=== PATIENT | male | born 1955 | race Caucasian/White ===

== ENCOUNTER 2019-02-03 13:43 | Inpatient (IN) ==
[2019-02-03 15:09] LABS: BE -1.9 mmoll (-3.0-3.0); BLOOD TYPE ARTERIAL; HCO3-(ACT) 23.4 mmoll (20.0-26.0); O2HB 94.1 % (95.0-99.0); PCO2(98.6) 20 mmHg (35-45); PO2(98.6) 71 mmHg (60-100); SAMPLE BLOOD; THB 12.1 g/dL (11.5-17.4); pH(98.6) 7.57 (7.35-7.45)
[2019-02-03 15:10] LABS: BASO% 1.4 % (0.0-0.8); EOS# 0.04 X1000 (0.0-0.7); EOS% 0.6 % (0.0-10.0); HEMOGLOBIN 11.9 g/dL (14.0-18.0); IMM GRAN# 0.02 X1000 (0.0-0.04); IMM GRAN% 0.3 % (0.0-0.5); LYMPH# 1.36 X1000 (1.2-3.4); LYMPH% 19.7 % (20.5-51.1); MCH 24.6 PG (27-31); MCHC 32.2 g/dL (33-37); MCV 76.6 FL (81-99); MONO# 1.19 X1000 (0.11-0.59); MONO% 17.2 % (1.7-9.3); MPV 9.8 FL (7.4-10.4); NEUT# 4.21 X1000 (1.4-6.5); NEUT% 60.8 % (42.2-75.2); PLT 171 X1000 (130-400); RBC 4.83 XMIL (4.7-6.1); RDW 18.7 % (11.5-14.5); WBC 6.92 X1000 (4.8-10.8)
[2019-02-03 15:11] LABS: BILIRUBIN URINE NEGATIVE (NEGATIVE); BLOOD URINE 4+ (NEGATIVE); CLARITY VERY CLOUDY (CLEAR); COLOR AMBER; KETONE URINE 2+(Moderate) mg/dL (NEGATIVE); LEUKOCYTES URINE 1+ (NEGATIVE); NITRITE URINE POSITIVE (NEGATIVE); PH URINE 6.5; PROTEIN URINE 2+(100 mg/dL) mg/dL (NEGATIVE); SP GRAVITY URINE 1.015; UROBILINOGEN URINE 4 mg/dL
[2019-02-03 15:11] LABS: ALLEN TEST NO; MODALITY ROOM AIR
--- NOTE | 2019-02-03 15:17 | EKG Report ---
Test Performed on : 02/03/2019 2:01:19 PM Test Reason : ams Blood Pressure : / mmHG Vent. Rate : 098 BPM Atrial Rate : 097 BPM P-R Int : 116 ms QRS Dur : 066 ms QT Int : 398 ms P-R-T Axes : 084 083 058 degrees QTc Int : 508 ms Undetermined rhythm Nonspecific ST and T wave abnormality Abnormal ECG When compared with ECG of 02-NOV-2017 01:57, Current undetermined rhythm precludes rhythm comparison, needs review Unconfirmed Result
[2019-02-03 15:19] LABS: INR 1.31
[2019-02-03 15:20] LABS: PTT 34.2 Seconds (22.3-41.8)
[2019-02-03 15:22] LABS: ESTIMATED GFR > 60
[2019-02-03 15:26] LABS: URINE BACTERIA 1+ /HFP; URINE CAST NONE SEEN /LPF; URINE EPITHELIAL CELLS <10 /HPF (<10); URINE RBC TNTC /HPF (<10); URINE YEAST NONE SEEN /HPF
[2019-02-03 15:27] LABS: URINE CRYSTAL NONE SEEN /HPF; URINE SOURCE CATH
[2019-02-03] MEDS ORDERED: MAGNESIUM SULFATE 2 GM/S.W.I. 2 GM/50 ML IVPB IV ONE (15:32)
[2019-02-03] MEDS ORDERED: MERREM 1 GM in NS 50 ML IV ONE (15:33)
[2019-02-03 15:34] LABS: AGAP 16; ALBUMIN 4.1 g/dL (3.5-5.0); ALKALINE PHOSPHATASE 288 U/L (32-122); BUN 11 mg/dL (8-22); CALCIUM 9.1 mg/dL (8.8-10.2); CHLORIDE 101 mmol/L (98-107); CK PROFILE 233 U/L (24-204); COSMO 278; CREATININE 0.4 mg/dL (0.7-1.2); GLUCOSE 187 mg/dL (70-104); GOT 27 U/L (10-34); GPT 14 U/L (10-44); MAGNESIUM 0.9 mg/dL (1.5-2.7); POTASSIUM 3.5 mmol/L (3.5-5.1); SODIUM 137 mmol/L (136-145); TCO2 20 mmol/L (25-35); TOTAL PROTEIN 6.7 g/dL (6.3-8.3)
--- NOTE | 2019-02-03 15:39 | Diag Imaging Result Doc PS360 ---
EXAM: CT HEAD W/O CONTRAST HISTORY: ams, fall TECHNIQUE: CT head without contrast COMPARISON: 10/30/2017 FINDINGS: No parenchymal hemorrhage. No epidural or subdural hematoma. No subarachnoid hemorrhage. Mild atrophy with mild chronic microvascular ischemic changes No mass identified on this noncontrasted exam. No hydrocephalus. No skull fracture. IMPRESSION: No hemorrhage. No injury. This exam was performed using automated exposure control, adjustment of mA or kV according to patient size, and/or use of iterative reconstruction technique. Electronically signed by Ramon Chavez 02/03/2019 3:37 PM
--- NOTE | 2019-02-03 15:57 | Diag Imaging Result Doc PS360 ---
EXAM: CHEST-1 VIEW HISTORY: AMS TECHNIQUE: Single view COMPARISON: 05/13/2017 FINDINGS: The lungs are well expanded. The heart is not enlarged. The vessels are not distended. There are no infiltrates. No effusion identified. IMPRESSION: Negative exam. Electronically signed by Ramon Chavez 02/03/2019 3:55 PM
[2019-02-03 16:02] LABS: CK INDEX 0.9 (0.0-2.5); CK-MB 2.04 ng/mL (0.0-5.0)
[2019-02-03] MEDS ORDERED: NS 1,000 ML IV ONE ×2 (16:07)
[2019-02-03] MEDS ORDERED: DILAUDID IV ONE (16:33)
--- NOTE | 2019-02-03 16:40 | PROVIDER DOCUMENTATION ---
This chart was entered by Priscila Cook Scribe, acting as scribe for Alonzo Saunders MD. HPI-General Adult - General Chief Complaint: SEPSIS ALERT - P Stated Complaint: CONFUSED X 2 DAYS Time Seen by Provider: 02/03/19 14:07 Source: patient, family Unable to obtain history due to:: altered (confused since yesterday) Allergies/Adverse Reactions: Patient Allergies Allergy/AdvReac Type Severity Reaction Status Date / Time No Known Allergies Allergy Verified 10/30/17 12:48 Home Medications: Home Medication List Medication Instructions Recorded Confirmed Last Taken Type Metformin HCl [Glucophage Xr] 720 mg PO BID 10/30/17 02/03/19 10/29/17 History Tamsulosin [Flomax] 0.4 mg PO DAILY 10/30/17 02/03/19 10/29/17 History Tizanidine HCl [Zanaflex] 4 mg PO QHS 10/30/17 02/03/19 10/29/17 History Lactulose 30 ml PO BID udc 11/18/17 02/03/19 Unknown Rx Calcium Carbonate [Calcium] 1,200 mg PO BID 02/03/19 02/03/19 Unknown History Oxycodone HCl 10 mg PO PRN PRN 02/03/19 02/03/19 Unknown History - History of Present Illness -Gen Adult Nature of Presenting Problems: 63 yowm presents to the ed with his . sts took him to see his pcp this am at dr chacon office for worsening confusion fever, chills and diarrhea. pt sts he fell 3 weeks prior but was not seen in dr office for fall. pt has hx of cirrhosis and sts when his ammonia gets elevated he has acted this way in the past. pt on exam is frail in appearance and ill appearing. pt is confused and c/o back pain Location of Pain/Injury: reports: back ( sts chronic) Quality of Pain: reports: aching Severity: reports: moderate Onset/Duration: reports: last night Timing: reports: still present (confusion), constant Context/Activities at Onset: reports: light activity Modifying Factors: improves with: nothing Associated Symptoms: reports: back/neck pain (chronic), diarrhea, fever/chills, malaise, sensory/motor loss (generalized weakness). denies: chest pain, nausea, shortness of breath, vomiting Similar Symptoms Previously?: Yes Recently seen or treated by another doctor?: Yes (saw dr shah this am and sent to ed) Review of Systems - Adult - REVIEW OF SYSTEMS - ADULT ROS:: ROS per family () Constitutional: reports: see HPI, chills, fever Eyes: reports: no symptoms reported Ears, Nose, Mouth & Throat: reports: no symptoms reported Cardiovascular: denies: chest pain, palpitations Respiratory: reports: no symptoms reported. denies: cough, shortness of breath, wheezing Gastrointestinal: reports: see HPI, diarrhea. denies: nausea, vomiting Genitourinary: reports: no symptoms reported Musculoskeletal: reports: see HPI, back pain (chronic). denies: neck pain Integumentary: reports: no symptoms reported Neurological: reports: see HPI, other (confused). denies: slurred speech Psychiatric: reports: no symptoms reported Endocrine: reports: no symptoms reported Hematologic/Lymphatic: reports: see HPI, easy bruising Allergic/Immunologic: reports: no symptoms reported All Other Systems: Reviewed and Negative Past History - Adult - PAST MEDICAL HISTORY-ADULT Review of Records: reports: Old Records Reviewed, Nursing Assessment Review, Medications Reviewed, Social history reviewed & non-contributory. Major Childhood Illnesses: reports: denies history Cardiovascular: reports: denies history Respiratory: reports: COPD Gastrointestinal: reports: GERD, liver disease Obstetrical/Gynecological: reports: denies history Genitourinary: reports: cancer Musculoskeletal: reports: chronic pain Hand Dominance: Right Handed Neurological: reports: denies history Psychiatric: reports: denies history Endocrine/Immune: reports: denies history, Diabetes Diabetes Type: Type 2 Other Conditions: reports: denies history - PRIOR SURGERIES/PROCEDURES Surgical/Procedure History: reports: reviewed, not pertinent - IMMUNIZATION STATUS Childhood Immunizations: See Nurse Assessment Flu Vaccine: See Nurse Assessment - FAMILY HISTORY Family History: reviewed, not pertinent - SOCIAL HISTORY Smoking: cigarettes, chew, less than 1 pack/day Provider spent 3-5 mins advising pt. on dangers of tobacco.: Discussed manners to quit use, and f/u contacts for add'l counseling. Substance Use: denies Living Situation: family Physical Exam-General - PHYSICAL EXAM-ADULT Initial Vital Signs Reviewed: Yes - CONSTITUTIONAL General Appearance: alert, mild distress, thin. negative: appears well - EYES Eyes: PERRL/EOMI, pale conjunctivae - HEAD, EARS, NOSE, MOUTH & THROAT HENMT: negative: moist mucous membranes (dry oral) - NECK Neck: full range of motion, normal inspection - RESPIRATORY Respiratory: chest non-tender, lungs clear, normal breath sounds, increased rate (24) - CARDIOVASCULAR Cardiovascular: normal peripheral pulses, tachycardia (108) - CHEST (BREASTS) Chest/Breast: deferred - GASTROINTESTINAL (ABDOMEN) Abdominal Exam: normal bowel sounds, other (scaphoid abdomen) - GENITOURINARY Male Genitalia: deferred Rectal Exam: deferred Hemoccult Exam: deferred - LYMPHATIC Lymphatic: no adenopathy - MUSCULOSKELETAL Back Exam: no CVA tenderness, no vertebral tenderness, other (has chronic back pain on exam c/o lumbar pain) Extremity: normal range of motion, normal inspection - SKIN Integumentary: warm/dry, pallor. negative: normal turgor (poor turgor) - NEUROLOGIC Neurologic: motor weakness (generalized) - PSYCHIATRIC Psych/Mental Status: disheveled (mild confusion) Progress - PLAN OF CARE/RESULTS Progress/Plan/Lab Results: Vital Signs - 8 hr 02/03/19 13:53 Temperature 97.7 F Pulse Rate 108 H Respiratory Rate 24 Blood Pressure 167/93 O2 Sat by Pulse Oximetry 92 L Orders Category Date Time Status Cardiac Monitoring DIRECTED Care 02/03/19 14:28 Active IV Insertion ORDERED Care 02/03/19 14:28 Active Notify Physician As Ordered Care 02/03/19 14:28 Active Nursing- Obtain EKG once Care 02/03/19 14:31 Active CHEST-1 VIEW [RAD] Stat Exams 02/03/19 14:[address] HEAD W/O CONTRAST [CT] Stat Exams 02/03/19 14:31 Ordered ABG [RESP] Routine Lab 02/03/19 14:28 Ordered AMMONIA [CHEM] Stat Lab 02/03/19 14:35 Ordered BLOOD CULTURE [BLDCUL] Stat Lab 02/03/19 14:35 Ordered CBC WITH DIFF [HEME] Stat Lab 02/03/19 14:35 Ordered CK PROFILE [SP CHEM] Stat Lab 02/03/19 14:35 Ordered COMPREHENSIVE METABOLIC PANEL [CHEM] Stat Lab 02/03/19 14:35 Ordered LACTATE, PLASMA [CHEM] Q3H Lab 02/03/19 14:35 Ordered LACTATE, PLASMA [CHEM] Q3H Lab 02/03/19 17:30 Uncollected LACTATE, PLASMA [CHEM] Q3H Lab 02/03/19 20:30 Uncollected MAGNESIUM [CHEM] Stat Lab 02/03/19 14:35 Ordered PRO B-NATRIURETIC PEPTIDE Stat Lab 02/03/19 14:35 Ordered PROTIME WITH INR [COAG] Stat Lab 02/03/19 14:35 Ordered PTT [COAG] Stat Lab 02/03/19 14:35 Ordered TROPONIN T Stat Lab 02/03/19 14:35 Ordered TYPE & SCREEN [BBK] Stat Lab 02/03/19 14:[address] W/POSS RFLX CULT [URINALYSIS] Stat Lab 02/03/19 14:28 Uncollected Oxygen Device Stat Oth 02/03/19 14:28 Active EKG [EKG] Stat Ther 02/03/19 14:31 Ordered Result Diagrams: 02/03/19 14:25 02/03/19 14:25 - REASSESSMENT Reassessment #1 Time Reassessed: 16:34 Status: unchanged (Given IVF bolus for possible sepsis, and lactate is greater than 4, however, this may be (partly) due to Metformin use. Patient is still quite altered, ammonia is only moderately elevated, and he has UTI) - EKG 1 Time of EKG reading by physician:: 14:01 EKG Read and Signed by:: Alonzo Saunders EKG Interpretation (*Must complete 3 of following elements*): Abnormal Rate: 98 Rhythm: undetermined rhythm [place]: normal QRS: normal NC Interval: normal Comments: st and t wave abnormality - XRAY 1 XRAY: Bilateral XRAY Study: Chest Impression: See EMR Report (EXAM: CHEST-1 VIEW HISTORY: AMS TECHNIQUE: Single view COMPARISON: 05/13/2017 FINDINGS: The lungs are well expanded. The heart is not enlarged. The vessels are not distended. There are no infiltrates. No effusion identified. IMPRESSION: Negative exam. Electronically signed by Ramon Chavez 02/03/2019 3:55 PM 02/03/19 [id number] Interpreting Physician: Ramon Chavez MD Dictated Date/Time: 02/03/19 4241 cc: Alonzo Saunders MD; Jay Jay Shah DO) - CT/MRI 1 CT Study: Head Impression: See EMR Report (EXAM: CT HEAD W/O CONTRAST HISTORY: ams, fall TECHNIQUE: CT head without contrast COMPARISON: 10/30/2017 FINDINGS: No parenchymal hemorrhage. No epidural or subdural hematoma. No subarachnoid hemorrhage. Mild atrophy with mild chronic microvascular ischemic changes No mass identified on this noncontrasted exam. No hydrocephalus. No skull fracture. IMPRESSION: No hemorrhage. No injury. This exam was performed using automated exposure control, adjustment of mA or kV according to patient size, an d/or use of iterative reconstruction technique. Electronically signed by Ramon Chavez 02/03/2019 3:37 PM 02/03/19 1537 Interpreting Physician: Ramon Chavez MD Dictated Date/Time: 02/03/19 1534 cc: Alonzo Saunders MD; Jay Jay Sahh DO) Departure - Departure Date of Disposition Decision: 02/03/19 Time of Disposition Decision: 16:39 DIAGNOSIS: Hepatic encephalopathy syndrome, UTI (urinary tract infection), bacterial, Lactic acidosis, Respiratory alkalosis Altered mental status, unspecified Qualifiers: Altered mental status type: delirium Qualified Code(s): R41.0 - Disorientation, unspecified Sepsis Qualifiers: Sepsis type: sepsis due to unspecified organism Sepsis acute organ dysfunction status: with acute organ dysfunction Severe sepsis acute organ dysfunction type: encephalopathy Severe sepsis shock status: without septic shock Qualified Code(s): A41.9 - Sepsis, unspecified organism; R65.20 - Severe sepsis without septic shock; G93.40 - Encephalopathy, unspecified Disposition: ADMITTED INPATIENT 09 Certified Medical Emergency: Emergent Condition: Fair Referrals and Follow-Ups: Jay Jay Shah DO [Primary Care Provider] - - Critical Care Note This patient required my direct & personal management of CC.: Yes Total Time (mins): 45 Critical Care Statement: This patient required my direct personal management to treat or rule out processes, the absence of which, could potentiallly result in sudden, clinically significant life or limb threatening deterioration. Attestation - Physician/ MANUEL Attestation Patient care was provided by Advanced Practice Provider:: No The physician spent face to face time with patient:: Yes Advanced Practice Provider documentation review:: Supervising physician onsite and consulted in the evaluation and care of this patient. The physician did have a face to face encounter with the patient. This chart was documented by the indicated scribe, (Priscila Cook, Suzi) and accurately reflects the services I performed and decisions made by me, Alonzo Saunders MD, as attested by the provider's signature.
[2019-02-03] MEDS: NS 1,000 ML IV SCH (18:59)
--- NOTE | 2019-02-03 21:59 | HISTORY AND PHYSICAL ---
CHIEF COMPLAINT: Altered mental status. HISTORY OF PRESENT ILLNESS: This is a 63-year-old gentleman with a history of cirrhosis, bladder cancer, diabetes mellitus, and chronic pain. He presents to the emergency room with family members who state that the patient has been confused for the last 48 hours. The night before last and yesterday, he was given 2 extra doses of lactulose. Yesterday afternoon, he did have diarrhea and quite an increase in the number of bowel movements. The reported that he did not become more confused, although he did not get any better. She states he has had very little p.o. intake during this last 24 hours. At the time of my exam, the patient has had 2 L of saline and the family member states she has seen a great improvement in his mental status and his alertness after the hydration. The patient states that for the last 5 or 6 days, he has felt like he might have had a urinary tract infection. He has had frequency, urgency, and had to push harder to start his flow. He denied any subjective fevers or chills. Lab work found a magnesium of 0.9 with an ammonia level of 102. Magnesium was supplemented along with 2 L of IV fluid bolus, and he is being admitted for further evaluation and treatment. PAST MEDICAL HISTORY: 1. 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 2. Diabetes mellitus type 2. 3. Hypertension. 4. Chronic pain. 5. Cirrhosis of the liver. 6. Corneal abrasion approximately 4 weeks ago. PAST SURGICAL HISTORY: 1. TURBT. 2. Cervical spine fusion. 3. Right carpal tunnel release. 4. Tonsillectomy. SOCIAL HISTORY: He chews tobacco as well as smokes cigarettes. He is a recovering alcoholic. He has not had a drink, by the 's report, in 5-1/2 years now. The patient is over-taking his medications. She tries to watch this, but states sometimes he does sneak extra in. FAMILY HISTORY: Positive for hypertension and diabetes in his parents. ALLERGIES: No known drug allergies. HOME MEDICATIONS: A list will be obtained by the nursing staff and once verified, will review and restart as appropriate. REVIEW OF SYSTEMS: The states the patient has voiced no complaints. Due to the patient's confusion, he does report urinary symptoms as stated in the HPI. We are unsure about the validity of his further review. PHYSICAL EXAMINATION: GENERAL: This is a 63-year-old gentleman who is lying on the stretcher in the emergency room in no distress. VITAL SIGNS: Blood pressure is 158/86 with a heart rate of 101, respirations are 22, temperature is 97.7 degrees, with room air saturations 92 to 96 percent. EYES: Pupils are equal, round, react to light. EOMs are intact. Sclerae are anicteric. HENT: Head is normocephalic, atraumatic. Mucous membranes are moist. NECK: Supple with trachea midline. CARDIOVASCULAR: Regular rate and rhythm. S1 and S2 appreciated. He has no lower extremity edema. Peripheral pulses are palpable x4 extremities. PULMONARY: Breath sounds are clear with no increased work of breathing noted. Chest rises and falls symmetrically with respiration. GASTROINTESTINAL: Abdomen is soft, nondistended, nontender, with bowel sounds in all 4 quadrants. SKIN: Warm and dry and pale. NEUROLOGIC: He is confused. He does follow simple commands. He moves extremities at random, but he is confused with details at times. DIAGNOSTICS: CT of the head revealed no hemorrhage, no injury. Chest x-ray: Negative exam. Lungs are well expanded. Heart is not enlarged. Vessels are not distended. There are no infiltrates. No effusion identified. Blood cultures and urine culture are pending. WBC is 6.9 with hemoglobin 11.9, hematocrit 37, and platelets 171,000. INR is 1.3. Sodium 137, potassium 3.5, BUN 11, creatinine 0, with a glucose of 187. Total bilirubin is 2.9 with alkaline phosphatase 288. Ammonia is 102 with a CPK of 233. Plasma lactate is 4. Urinalysis: Catheter specimen reveals 2+ protein, 2+ ketones, 4+ blood, with nitrite positive, too numerous to count red blood cells, 10 to 20 microscopic white blood cells, and 1+ bacteria. ABGs: PH is 7.5 with pCO2 20, pO2 71, and bicarb 23.4. ASSESSMENT AND PLAN: 1. Hepatic encephalopathy. Continue lactulose. add Xifaxan 550 b.i.d. Neuro checks. repeat an ammonia level as well as a CBC in the morning. 2. Urinary tract infection. Urine culture is pending. continue Merrem. 3. Lactic acidosis with metabolic acidosis. Cultures are pending. trend lactic acid per sepsis protocol. continue antibiotics for urinary tract infection. 4. Diabetes mellitus. Pattern blood glucose with sliding scale insulin. 5. Liver cirrhosis. continue medications as stated above. 6. Chronic back pain. We will give Zanaflex, but hold other medications at present. identify medications and continue as appropriate. 7. We will continue with gentle intravenous hydration. 8. The patient states that he takes 2-1/2 Zanaflex at night to sleep when he is able to get the extra medication, as his watches his medications. I did discuss with the patient that we will not be increasing doses of medication to that extent. 9. Left elbow wound. The states he sustained this 3 weeks ago falling at an textile colorist formulator's office. There is some erythema and tenderness around this site. We will culture if there is any drainage. 10. Recent corneal abrasion. The patient is using Systane eyedrops every 2 hours when awake. We will continue this. Of note, this was evaluated by his textile colorist formulator, Dr. Casas. 11. elevated INR in a pt on no anticoagulation, most likely due to cirrhosis. Will discuss with Dr Reyes. For deep venous thrombosis prophylaxis, will use sequential compression devices. Gastrointestinal prophylaxis. Prilosec. Dictated by BONILLA Olsen for Ata Davenport MD cc: BONILLA Olsen MD [facility]
[2019-02-03] MEDS: SYSTANE EYE DROPS BOTH EYES SCH ×3 (22:03→22:30)
--- NOTE | 2019-02-03 22:13 | HISTORY AND PHYSICAL ---
ADDENDUM: Patient seen and examined by myself. Full note dictated and discussed with nurse practitioner. Patient has a known history of cirrhosis with previous hepatic encephalopathy. This time he became acutely confused. He presented to the hospital. He is actually somewhat improved after getting IV fluids and antibiotics. He appears to have a urinary tract infection as well as hepatic encephalopathy, as his ammonia level is elevated at 100. PLAN: We are going to admit patient to the hospital, place him on treatment for his hepatic encephalopathy, place him on antibiotics, IV fluids, and will follow. cc: Ata Davenport MD
[2019-02-03] MEDS: CALTRATE 600 PO SCH (22:28)
[2019-02-03] MEDS: LACTULOSE PO SCH (22:28)
[2019-02-03] MEDS: XIFAXAN PO SCH (22:28)
[2019-02-03] MEDS: ZANAFLEX PO SCH (22:29)
[2019-02-04] MEDS: SYSTANE EYE DROPS BOTH EYES SCH ×12 (00:51→23:13)
[2019-02-04] MEDS: MERREM 1 GM in NS 50 ML IV SCH ×4 (00:51→23:13)
[2019-02-04 01:55] LABS: INR 1.5; PROTIME 18.9 Seconds (11.0-16.0)
[2019-02-04 05:12] LABS: BASO# 0.05 X1000 (0.0-0.2); BASO% 0.8 % (0.0-0.8); EOS# 0.06 X1000 (0.0-0.7); HEMATOCRIT 31.8 % (42.0-52.0); IMM GRAN# 0.02 X1000 (0.0-0.04); IMM GRAN% 0.3 % (0.0-0.5); LYMPH# 1.55 X1000 (1.2-3.4); LYMPH% 24.6 % (20.5-51.1); MCH 24.4 PG (27-31); MCHC 31.4 g/dL (33-37); MCV 77.8 FL (81-99); MPV 10.5 FL (7.4-10.4); NEUT# 3.43 X1000 (1.4-6.5); NEUT% 54.3 % (42.2-75.2); PLT 140 X1000 (130-400); RBC 4.09 XMIL (4.7-6.1); RDW 18.4 % (11.5-14.5); WBC 6.31 X1000 (4.8-10.8)
[2019-02-04 05:28] LABS: AGAP 12; ALKALINE PHOSPHATASE 219 U/L (32-122); BUN 9 mg/dL (8-22); CHLORIDE 108 mmol/L (98-107); COSMO 278; CREATININE 0.3 mg/dL (0.7-1.2); ESTIMATED GFR > 60; GLUCOSE 200 mg/dL (70-104); GOT 20 U/L (10-34); GPT 11 U/L (10-44); MAGNESIUM 1.2 mg/dL (1.5-2.7); POTASSIUM 2.9 mmol/L (3.5-5.1); SODIUM 137 mmol/L (136-145); TCO2 17 mmol/L (25-35); TOTAL PROTEIN 5.3 g/dL (6.3-8.3)
[2019-02-04] MEDS: NS 1,000 ML IV SCH (05:38)
[2019-02-04] MEDS ORDERED: MAGNESIUM SULFATE 2 GM/S.W.I. 2 GM/50 ML IVPB IV ONE (06:53)
[2019-02-04] MEDS: CALTRATE 600 PO SCH ×2 (08:43→20:08)
[2019-02-04] MEDS: FLOMAX PO SCH (08:43)
[2019-02-04] MEDS: LACTULOSE PO SCH ×2 (08:43→20:09)
[2019-02-04] MEDS: ROBAXIN PO SCH ×2 (08:43→20:08)
[2019-02-04] MEDS: XIFAXAN PO SCH ×2 (08:44→20:07)
[2019-02-04] MEDS: GLUCOPHAGE XR PO SCH (08:44)
[2019-02-04] MEDS: OXY IR PO PRN ×3 (08:44→21:38)
[2019-02-04] MEDS: POTASSIUM CHLORIDE 20 MEQ/SWI 20 MEQ/100 ML IVPB IV SCH ×2 (09:19→11:33)
[2019-02-04] MEDS ORDERED: FLU VACCINE IM ONE (10:00)
[2019-02-04] MEDS ORDERED: PNEUMOVAX 23 IM ONE (10:00)
[2019-02-04] MEDS ORDERED: VITAMIN K IM ONE (14:19)
[2019-02-04] MEDS ORDERED: NS 1,000 ML IV SCH (14:24)
[2019-02-04] MEDS ORDERED: VANCOMYCIN IV PER PHARMACY MISC SCH (14:30)
[2019-02-04] MEDS: PRILOSEC PO SCH (14:38)
[2019-02-04] MEDS ORDERED: VANCOMYCIN 2,000 MG in NS 500 ML IV ONE (15:30)
[2019-02-04] MEDS: ZANAFLEX PO SCH (20:07)
[2019-02-04] MEDS: ZOFRAN IV PRN (20:25)
--- NOTE | 2019-02-04 22:00 | PROGRESS NOTE ---
DATE: 02/04/2019 SUBJECTIVE: The patient himself notes that he is feeling better today. He is able to speak in complete sentences, although states he is still tired and fatigued. His notes that he is tremendously better. OBJECTIVE: Vital signs: Temperature 98 degrees, pulse 60s, blood pressure stable. General: Patient is awake, alert. He is much more alert, much more awake. He is able to answer questions today, whereas he was not able to yesterday. HEENT: Normocephalic. Neck: Supple. Cardiovascular: Regular rate. Chest: Clear. Abdomen: Soft. Extremities: Moves all extremities. Neurologic: No changes. ASSESSMENT: 1. Cirrhosis. 2. Hyperammonemia. His ammonia level has improved. It is down from 100 to 82. 3. Hypokalemia. Will replace. 4. Sepsis, improved. 5. Urinary tract infection with gram-negative rods. 6. Wound infection, elbow, with gram-positive cocci. PLAN: We are going to continue antibiotics. We will await cultures and will adjust antibiotics once cultures are obtained. cc: Ata Davenport MD
[2019-02-05] MEDS: SYSTANE EYE DROPS BOTH EYES SCH ×10 (03:04→20:09)
[2019-02-05] MEDS: VANCOMYCIN 1,650 MG in NS 250 ML IV SCH ×2 (03:05→15:22)
[2019-02-05 05:42] LABS: INR 1.43; PROTIME 18.2 Seconds (11.0-16.0)
[2019-02-05] MEDS: PRILOSEC PO SCH (06:03)
[2019-02-05 07:41] LABS: HEMATOCRIT 29.6 % (42.0-52.0); HEMOGLOBIN 9.1 g/dL (14.0-18.0); MCH 24.4 PG (27-31); MCHC 30.7 g/dL (33-37); MCV 79.4 FL (81-99); MPV 10.6 FL (7.4-10.4); RBC 3.73 XMIL (4.7-6.1); RDW 18.5 % (11.5-14.5); WBC 6.92 X1000 (4.8-10.8)
[2019-02-05 07:56] LABS: AGAP 10; ALBUMIN 2.8 g/dL (3.5-5.0); ALKALINE PHOSPHATASE 211 U/L (32-122); BUN 9 mg/dL (8-22); CALCIUM 7.9 mg/dL (8.8-10.2); CHLORIDE 108 mmol/L (98-107); COSMO 278; CREATININE 0.4 mg/dL (0.7-1.2); ESTIMATED GFR > 60; GLUCOSE 157 mg/dL (70-104); GOT 20 U/L (10-34); GPT 12 U/L (10-44); MAGNESIUM 1.3 mg/dL (1.5-2.7); POTASSIUM 3.7 mmol/L (3.5-5.1); SODIUM 138 mmol/L (136-145); TCO2 20 mmol/L (25-35); TOTAL PROTEIN 4.8 g/dL (6.3-8.3)
[2019-02-05] MEDS ORDERED: MAGNESIUM SULFATE 2 GM/S.W.I. 2 GM/50 ML IVPB IV ONE ×2 (08:36→18:00)
[2019-02-05] MEDS ORDERED: VITAMIN K IM ONE (08:37)
[2019-02-05] MEDS: MERREM 1 GM in NS 50 ML IV SCH ×3 (09:02→23:04)
[2019-02-05] MEDS: ROBAXIN PO SCH ×2 (09:07→20:09)
[2019-02-05] MEDS: GLUCOPHAGE XR PO SCH (09:07)
[2019-02-05] MEDS: OXY IR PO PRN ×3 (09:07→21:23)
[2019-02-05] MEDS: CALTRATE 600 PO SCH ×2 (09:07→20:09)
[2019-02-05] MEDS: XIFAXAN PO SCH ×2 (09:07→20:10)
[2019-02-05] MEDS: LACTULOSE PO SCH ×2 (09:08→20:09)
[2019-02-05] MEDS: FLOMAX PO SCH (09:08)
[2019-02-05] MEDS: ZOFRAN IV PRN (13:58)
--- NOTE | 2019-02-05 15:28 | PROGRESS NOTE ---
DATE: 02/05/2019 SUBJECTIVE: Patient notes overall he is feeling better. His notes that his mental status is fairly much back to his baseline. He is still tired and fatigued. Denies any fevers or chills. PHYSICAL EXAMINATION: Vital Signs: Reviewed. Temp 97.7 degrees, pulse 60, respiratory rate 18, BP 122/75. General: Patient is awake, alert. He is in no current respiratory distress. He is pleasant to talk with. HEENT: Normocephalic. Neck: Supple. Cardiovascular: Regular rate. Chest: Clear, nonlabored. Abdomen: Soft, nondistended. Extremities: Moves all extremities. ASSESSMENT: 1. Gram-negative sergey urinary tract infection. 2. Gram-positive cocci wound infection, elbow. 3. Cirrhosis with hepatic encephalopathy, improved. 4. Metabolic encephalopathy secondary to cirrhosis. The ammonia level has climbed back up to 100 today from 82 yesterday. Thankfully, however, he is still mentally awake, alert, and oriented. 5. Chronic back pain. 6. Diabetes. 7. Hypokalemia, resolved. 8. Hypomagnesemia, will continue to replace. 9. Sepsis, resolved. cc: Ata Davenport MD
[2019-02-05] MEDS: ZANAFLEX PO SCH (20:09)
[2019-02-06] MEDS: SYSTANE EYE DROPS BOTH EYES SCH ×10 (03:29→20:44)
[2019-02-06] MEDS: VANCOMYCIN 1,650 MG in NS 250 ML IV SCH (03:31)
[2019-02-06 05:55] LABS: HEMATOCRIT 33.7 % (42.0-52.0); HEMOGLOBIN 10.2 g/dL (14.0-18.0); MCH 24.1 PG (27-31); MCHC 30.3 g/dL (33-37); MCV 79.5 FL (81-99); MPV 10.5 FL (7.4-10.4); RBC 4.24 XMIL (4.7-6.1); RDW 18.2 % (11.5-14.5); WBC 2.09 X1000 (4.8-10.8)
[2019-02-06 06:14] LABS: INR 1.24; PROTIME 16.3 Seconds (11.0-16.0)
[2019-02-06] MEDS: PRILOSEC PO SCH (06:17)
[2019-02-06] MEDS: OXY IR PO PRN ×3 (06:22→20:44)
[2019-02-06 06:27] LABS: HEMOGLOBIN A1C 7.8 % (4.8-6.0)
[2019-02-06 06:36] LABS: AGAP 10; ALBUMIN 3.1 g/dL (3.5-5.0); ALKALINE PHOSPHATASE 248 U/L (32-122); BUN 9 mg/dL (8-22); CALCIUM 8.2 mg/dL (8.8-10.2); CHLORIDE 104 mmol/L (98-107); COSMO 276; CREATININE 0.3 mg/dL (0.7-1.2); ESTIMATED GFR > 60; GLUCOSE 194 mg/dL (70-104); GOT 34 U/L (10-34); GPT 21 U/L (10-44); MAGNESIUM 1.5 mg/dL (1.5-2.7); POTASSIUM 3.4 mmol/L (3.5-5.1); SODIUM 136 mmol/L (136-145); TCO2 22 mmol/L (25-35); TOTAL PROTEIN 5.5 g/dL (6.3-8.3)
[2019-02-06] MEDS: CLEOCIN PO SCH ×3 (08:02→20:42)
[2019-02-06] MEDS: LACTULOSE PO SCH ×3 (08:03→20:42)
[2019-02-06] MEDS: LEVAQUIN PO SCH (08:03)
[2019-02-06] MEDS: ROBAXIN PO SCH ×2 (08:04→20:43)
[2019-02-06] MEDS: XIFAXAN PO SCH ×2 (08:04→20:43)
[2019-02-06] MEDS: MERREM 1 GM in NS 50 ML IV SCH (08:17)
[2019-02-06] MEDS: CALTRATE 600 PO SCH ×2 (08:19→20:44)
[2019-02-06] MEDS: FLOMAX PO SCH (08:19)
[2019-02-06] MEDS: GLUCOPHAGE XR PO SCH (08:20)
--- NOTE | 2019-02-06 12:57 | PROGRESS NOTE ---
DATE: 02/06/2019 SUBJECTIVE: Patient notes that he is feeling better, although still not completely back to his baseline. notes that he is still having some confusion, but essentially back to his baseline. PHYSICAL EXAM: Temperature 97.7 degrees, pulse 60, respiratory rate 18, BP 122/75.General: Patient is awake, alert. He is in no current respiratory distress. HEENT: Normocephalic. Neck: Supple. Cardiovascular: Regular rate. Chest: Clear. Abdomen: Soft. Extremities: Moves all extremities. ASSESSMENT: 1. Cirrhosis. His ammonia level is still pending this morning, although it did climb back up yesterday. He apparently has not been having bowel movements yesterday. We are going to increase his lactulose, continue Xifaxan. 2. Klebsiella urinary tract infection resistant to Bactrim. Will change to Levaquin. 3. Staphylococcus aureus methicillin sensitive wound infection, very sensitive to clindamycin. 4. Sepsis, resolved. 5. Hepatic encephalopathy, stable. PLAN: As noted, change his antibiotics, increase his lactulose and will follow. cc: Ata Davenport MD
[2019-02-06] MEDS: ZOFRAN IV PRN (16:28)
[2019-02-06] MEDS: ZANAFLEX PO SCH (20:43)
[2019-02-07] MEDS: SYSTANE EYE DROPS BOTH EYES SCH ×5 (03:24→11:46)
[2019-02-07] MEDS: PRILOSEC PO SCH (06:07)
[2019-02-07] MEDS: CLEOCIN PO SCH (09:50)
--- NOTE | 2019-02-07 09:50 | Diag Imaging Result Doc PS360 ---
KUB ABDOMEN - 02/07/2019 INDICATION: constipation COMPARISON: 11/08/2017 FINDINGS: There is no constipation. There is a nonobstructive bowel gas pattern. No free air or abnormal calcifications. IMPRESSION: No acute disease. Electronically signed by Omar Cheung 02/07/2019 9:48 AM
[2019-02-07] MEDS: CALTRATE 600 PO SCH (09:51)
[2019-02-07] MEDS: GLUCOPHAGE XR PO SCH (09:51)
[2019-02-07] MEDS: LEVAQUIN PO SCH (09:52)
[2019-02-07] MEDS: ROBAXIN PO SCH (09:52)
[2019-02-07] MEDS: OXY IR PO PRN (09:52)
[2019-02-07] MEDS: XIFAXAN PO SCH (09:52)
[2019-02-07] MEDS: LACTULOSE PO SCH (09:53)
[2019-02-07] MEDS: FLOMAX PO SCH (09:53)
[2019-02-07 10:36] LABS: HEMATOCRIT 31.9 % (42.0-52.0); HEMOGLOBIN 9.8 g/dL (14.0-18.0); MCH 24.3 PG (27-31); MCHC 30.7 g/dL (33-37); MPV 10.4 FL (7.4-10.4); RBC 4.04 XMIL (4.7-6.1); RDW 18.2 % (11.5-14.5); WBC 4.22 X1000 (4.8-10.8)
[2019-02-07 10:37] LABS: AGAP 11; ALKALINE PHOSPHATASE 232 U/L (32-122); BUN 10 mg/dL (8-22); CALCIUM 8.5 mg/dL (8.8-10.2); CHLORIDE 98 mmol/L (98-107); COSMO 271; CREATININE 0.5 mg/dL (0.7-1.2); ESTIMATED GFR > 60; GLUCOSE 231 mg/dL (70-104); GOT 30 U/L (10-34); GPT 19 U/L (10-44); POTASSIUM 3.8 mmol/L (3.5-5.1); SODIUM 132 mmol/L (136-145); TCO2 23 mmol/L (25-35); TOTAL PROTEIN 5.6 g/dL (6.3-8.3)
[2019-02-07] MEDS: ZOFRAN IV PRN (11:56)
[2019-02-07] MEDS ORDERED: FLU VACCINE IM ONE (12:32)
[2019-02-07] MEDS ORDERED: PNEUMOVAX 23 IM ONE (12:34)
[2019-02-07 13:43] VITALS: BP 138/71
--- NOTE | 2019-02-07 16:57 | DISCHARGE SUMMARY ---
ADMISSION DATE: 02/03/2019 DISCHARGE DATE: 02/07/2019 DIAGNOSES: 1. Hepatic encephalopathy, resolved. 2. Urinary tract infection, Klebsiella pneumoniae, extended spectrum beta- lactamase negative. 3. Liver cirrhosis. 4. Diabetes mellitus. 5. Chronic back pain. 6. Left elbow wound with methicillin susceptible Staph aureus. 7. Sepsis, resolved. 8. Cirrhosis. DIAGNOSTICS: 1. Chest x-ray negative exam. Lungs are well expanded. Heart is not enlarged. Vessels are not distended. There are no infiltrates. No effusion identified. 2. CT of the head revealed no hemorrhage, no injury. 3. Abdominal x-ray revealed no acute disease. There is no constipation. There is a nonobstructive bowel gas pattern. No free air or abnormal calcifications. MICROBIOLOGY: 1. Blood cultures x2 revealed no growth after 48 hours. 2. Urine culture revealed Klebsiella pneumoniae, ESBL negative. 3. Wound culture, left elbow. Methicillin-susceptible Staphylococcus aureus. ICR negative. HOSPITAL COURSE: Mr. Mccallum presented to the emergency room with altered mental status. He was found to have an ammonia level of 102. We continued his lactulose, added Xifaxin, and today his ammonia level is down to 36. The states he is back to his normal mentation. He was found to have a Klebsiella urinary tract infection as well as MSSA in his left elbow for which he was initially given antibiotic coverage of Merrem and will be discharged on clindamycin and Levaquin. We trended electrolytes and repleted as appropriate. Sepsis has resolved. He did have a corneal abrasion approximately 4 weeks prior for which he was using saline eyedrops every 2 hours when awake. We did continue this. Admission INR was 1.31. It did peak at 1.5 on the . He was given vitamin K 10 mg twice, and on the , his INR is 1.24. LFTs were initially elevated. These have greatly improved. The patient has had no GI follow-up. I did call and discuss the patient with Dr. Locke, and as he is improved, he will follow up on an outpatient basis. The will call Friday to schedule an appointment. They have been instructed to call to be seen sooner or return to the emergency room for any syncope, dizziness, chest pain, palpitations, any temperature greater than 101, cough, nausea, vomiting, diarrhea, constipation, black or bloody vomitus or stools, any hematuria, dysuria, frequency, urgency. DISCHARGE VITAL SIGNS: Blood pressure is 114/60 with heart rate of 86, respirations 16, temperature 98.2 degrees with room air saturations 95%. DISCHARGE PHYSICAL EXAMINATION: Cardiovascular: Regular rate and rhythm. S1 and S2 appreciated. Pulmonary: Breath sounds are clear with no increased work of breathing noted. Gastrointestinal: Abdomen is soft, nontender, nondistended with bowel sounds in all 4 quadrants. Skin: Warm and dry. Neurologic: He continues with some confusion, but he is back to his baseline per his . DISCHARGE MEDICATIONS: 1. Levaquin 500 mg p.o. daily x10 days. 2. Lactulose 30 mL p.o. b.i.d., titrate to 4 bowel movements a day as prehospitalization. 3. Clindamycin 300 mg p.o. t.i.d., #21 caps. 4. Zanaflex 4 mg p.o. at bedtime. 5. Flomax 0.4 mg p.o. at bedtime. 6. Oxycodone 10 mg p.o. as directed. 7. Methocarbamol 750 p.o. b.i.d. 8. Metformin 500 mg p.o. daily. 9. Calcium 1200 mg p.o. b.i.d. He is being discharged home in stable condition with his . TIME SPENT: This is a greater than 30 minute discharge. Dictated by BONILLA Olsen for Ata Davenport MD cc: BONILLA Olsen MD Khurshid Yousuf, MD Thomas E. Lockard, DO MTDD
--- NOTE | 2019-02-08 03:50 | DISCHARGE SUMMARY ---
ADMISSION DATE: 02/03/2019 DISCHARGE DATE: 02/07/2019 ADDENDUM: Patient seen and examined by myself. Full note dictated and discussed with nurse practitioner. Patient presented to the hospital with acute metabolic encephalopathy secondary to hepatic cirrhosis and elevated ammonia level around 100. He was also noted to have a urinary tract infection which subsequently grew Klebsiella as well as methicillin sensitive Staph aureus in his blood. Thankfully on discharge he is awake, alert. He is feeling better. He is having no new complaints. We will discharge him home on antibiotics and lactulose. He will follow up outpatient with primary care of his choice. cc: Ata Davenport MD
== END 2019-02-07 14:30 | disposition home health service (06) | DRG 441 ==
LOC: P.ED 13:43 → P.MEDSURG 13:44
PROVIDERS: ATTEND Family Medicine

== ENCOUNTER 2019-05-31 11:03 | Inpatient (IN) ==
--- NOTE | 2019-05-31 11:44 | Diag Imaging Result Doc PS360 ---
EXAM: CHEST-1 VIEW HISTORY: sepsis protocol TECHNIQUE: Single view COMPARISON: 02/03/2019 FINDINGS: The lungs are well expanded. The heart is not enlarged. The vessels are not distended. There are no infiltrates. No effusion identified. IMPRESSION: No pneumonia Electronically signed by Ramon Chavez 05/31/2019 11:41 AM
--- NOTE | 2019-05-31 11:47 | EKG Report ---
Test Performed on : 05/31/2019 11:26:51 AM Test Reason : weakness Blood Pressure : / mmHG Vent. Rate : 083 BPM Atrial Rate : 267 BPM P-R Int : 000 ms QRS Dur : 074 ms QT Int : 412 ms P-R-T Axes : 000 045 034 degrees QTc Int : 484 ms Atrial fibrillation. with premature ventricular or aberrantly conducted complexes. ST & T wave abnormality, consider anterior ischemia Prolonged QT Abnormal ECG When compared with ECG of 03-FEB-2019 14:01, Previous ECG has undetermined rhythm, needs review Nonspecific T wave abnormality no longer evident in Lateral leads Unconfirmed Result
--- NOTE | 2019-05-31 11:52 | PROVIDER DOCUMENTATION ---
HPI-General Adult - General Chief Complaint: Altered Mental Status Stated Complaint: AMS Time Seen by Provider: 05/31/19 11:31 Source: patient, family Allergies/Adverse Reactions: Patient Allergies Allergy/AdvReac Type Severity Reaction Status Date / Time No Known Allergies Allergy Verified 05/31/19 11:58 Home Medications: Home Medication List Medication Instructions Recorded Confirmed Last Taken Type Tizanidine HCl [Zanaflex] 4 mg PO QHS 10/30/17 05/31/19 05/29/19 History Calcium Carbonate [Calcium] 1,200 mg PO BID 02/03/19 05/31/19 05/29/19 History Oxycodone HCl 10 mg PO PRN PRN 02/03/19 05/31/19 05/29/19 History Metformin HCl [Metformin HCl ER] 1,000 mg PO DAILY 02/04/19 05/31/19 05/29/19 History Insulin Degludec [Tresiba 15 unit SQ DAILY 05/31/19 05/31/19 05/29/19 History Flextouch U-200] Lactulose 30 ml PO TID 05/31/19 05/31/19 05/30/19 History Rifaximin [Xifaxan] 550 mg PO DAILY 05/31/19 05/31/19 05/30/19 History Tamsulosin [Flomax] 0.4 mg PO DAILY 05/31/19 05/31/19 05/29/19 History - History of Present Illness -Gen Adult Nature of Presenting Problems: 64yo male with PMH of alcoholic cirrhosis presents with family with concerns of 1 week of progressive confusion. The family reports that the patient has been increasingly lethargic and also had more restless behavior and has been forgeting were he is and what month it is. The family reports he has been taking his lactulose and rifaxim, but does have hx of hyperammonia. The family denies fevers, new pain, bleeding, swelling, but does report some exertional shortness of breath. Review of Systems - Adult - REVIEW OF SYSTEMS - ADULT ROS:: ROS per family Constitutional: reports: no symptoms reported. denies: fever Eyes: reports: no symptoms reported. denies: eye pain Ears, Nose, Mouth & Throat: reports: no symptoms reported. denies: throat pain Cardiovascular: reports: no symptoms reported. denies: chest pain Respiratory: reports: dyspnea on exertion Gastrointestinal: reports: no symptoms reported. denies: abdominal pain, diarrhea Genitourinary: reports: no symptoms reported Musculoskeletal: reports: back pain (chronic) Integumentary: reports: no symptoms reported Neurological: reports: no symptoms reported. denies: headache/migraines, numbness Psychiatric: reports: other (increased fatigue and restlessness) Endocrine: reports: no symptoms reported Hematologic/Lymphatic: reports: no symptoms reported, other (no bleeding) Allergic/Immunologic: reports: no symptoms reported, other (no swelling) Past History - Adult - PAST MEDICAL HISTORY-ADULT Review of Records: reports: Old Records Reviewed Major Childhood Illnesses: reports: denies history Cardiovascular: reports: denies history Respiratory: reports: denies history Gastrointestinal: reports: denies history Obstetrical/Gynecological: reports: denies history Genitourinary: reports: cancer Musculoskeletal: reports: denies history Neurological: reports: denies history Endocrine/Immune: reports: denies history, Diabetes Other Conditions: reports: denies history - PRIOR SURGERIES/PROCEDURES Surgical/Procedure History: reports: reviewed, not pertinent - IMMUNIZATION STATUS Childhood Immunizations: See Nurse Assessment Flu Vaccine: See Nurse Assessment - FAMILY HISTORY Family History: reviewed, not pertinent Physical Exam-General - PHYSICAL EXAM-ADULT Initial Vital Signs Reviewed: Yes - CONSTITUTIONAL General Appearance: alert, no apparent distress, thin, slow to respond. negative: anxious - EYES Eyes: negative: conjuctival exudate, photophobia, scleral icterus - HEAD, EARS, NOSE, MOUTH & THROAT HENMT: normocephalic/atraumatic, moist mucous membranes, pharynx normal - NECK Neck: non-tender, supple - RESPIRATORY Respiratory: normal breath sounds, no respiratory distress - CARDIOVASCULAR Cardiovascular: regular rate, rhythm, no edema - GASTROINTESTINAL (ABDOMEN) Abdominal Exam: non tender, soft. negative: distended - MUSCULOSKELETAL Extremity: non-tender. negative: deformity, swelling - SKIN Integumentary: normal color, warm/dry. negative: cyanosis, diaphoresis, jaundice, pallor - NEUROLOGIC Neurologic: grossly normal - PSYCHIATRIC Psych/Mental Status: other (orient to place and month, difficulty with name but eventually able to birthday, and then name with prompting.). negative: anxious Progress - PLAN OF CARE/RESULTS Progress/Plan/Lab Results: Vital Signs - 8 hr 05/31/19 11:20 Temperature 98.4 F Pulse Rate 96 H Respiratory Rate 20 Blood Pressure 150/85 O2 Sat by Pulse Oximetry 95 Orders Category Date Time Status Cardiac Monitoring NOW Care 05/31/19 11:25 Active IV Insertion NOW Care 05/31/19 11:25 Active NEWS Score 2-4:Order NEWS Lactate Series NOW Care 05/31/19 11:24 Active Notify Provider of NEWS Score NOW Care 05/31/19 11:25 Active CHEST-1 VIEW [RAD] Stat Exams 05/31/19 11:25 Completed AMMONIA [CHEM] Stat Lab 05/31/19 11:27 Uncollected BLOOD CULTURE [BLDCUL] Stat Lab 05/31/19 11:25 Uncollected CBC WITH DIFF [HEME] Stat Lab 05/31/19 11:25 Uncollected CK PROFILE [SP CHEM] Stat Lab 05/31/19 11:25 Uncollected COMPREHENSIVE METABOLIC PANEL [CHEM] Stat Lab 05/31/19 11:25 Uncollected LACTATE, PLASMA [CHEM] Q3H Lab 05/31/19 11:30 Uncollected LACTATE, PLASMA [CHEM] Q3H Lab 05/31/19 14:30 Uncollected LACTATE, PLASMA [CHEM] Q3H Lab 05/31/19 17:30 Uncollected PROTIME WITH INR [COAG] Stat Lab 05/31/19 11:25 Uncollected PTT [COAG] Stat Lab 05/31/19 11:25 Uncollected TROPONIN T HIGH SENSITIVITY Stat Lab 05/31/19 11:25 Uncollected URINALYSIS W/POSS RFLX CULT [URINALYSIS] Stat Lab 05/31/19 11:25 Uncollected O2 Per Protocol Stat Oth 05/31/19 11:25 Active EKG [EKG] Stat Ther 05/31/19 11:28 Ordered Result Diagrams: 05/31/19 12:15 05/31/19 12:15 - REASSESSMENT Reassessment #1 Status: other (Pt ammonia WNL, however given progressive altered mentation at [facility] as well as elevated lactate and increased troponin will admit to the hospitalist team for further work up and evaluation. Discussed with the hospitalist team and they have accepted the patient. The pt is without chest pain and EKG without ST elevation.) Departure - Departure Date of Disposition Decision: 05/31/19 Time of Disposition Decision: 14:45 DIAGNOSIS: Lactic acidosis, Elevated troponin Altered mental status Qualifiers: Altered mental status type: unspecified Qualified Code(s): R41.82 - Altered mental status, unspecified Cirrhosis of liver Qualifiers: Hepatic cirrhosis type: alcoholic cirrhosis Ascites presence: without ascites Qualified Code(s): K70.30 - Alcoholic cirrhosis of liver without ascites Disposition: ADMITTED INPATIENT 09 Certified Medical Emergency: Emergent Condition: Fair Referrals and Follow-Ups: Jay Jay Shah DO [Primary Care Provider] - - Critical Care Note This patient required my direct & personal management of CC.: No Attestation - Physician/ MANUEL Attestation Patient care was provided by Advanced Practice Provider:: No The physician spent face to face time with patient:: Yes Advanced Practice Provider documentation review:: Supervising physician onsite and consulted in the evaluation and care of this patient. The physician did have a face to face encounter with the patient.
[2019-05-31 12:45] LABS: BASO# 0.05 X1000 (0.0-0.2); BASO% 0.6 % (0.0-0.8); EOS# 0.03 X1000 (0.0-0.7); EOS% 0.4 % (0.0-10.0); HEMATOCRIT 39.1 % (42.0-52.0); HEMOGLOBIN 12.7 g/dL (14.0-18.0); IMM GRAN# 0.02 X1000 (0.0-0.04); IMM GRAN% 0.2 % (0.0-0.5); LYMPH# 1.15 X1000 (1.2-3.4); LYMPH% 13.5 % (20.5-51.1); MCH 22.7 PG (27-31); MCHC 32.5 g/dL (33-37); MCV 69.9 FL (81-99); MONO# 0.99 X1000 (0.11-0.59); MONO% 11.6 % (1.7-9.3); MPV 10.5 FL (7.4-10.4); NEUT% 73.7 % (42.2-75.2); PLT 158 X1000 (130-400); RBC 5.59 XMIL (4.7-6.1); WBC 8.54 X1000 (4.8-10.8)
[2019-05-31 12:54] LABS: INR 1.34; PROTIME 16.8 Seconds (11.0-16.0)
[2019-05-31 12:55] LABS: PTT 36.7 Seconds (22.3-41.8)
[2019-05-31 13:03] LABS: URINE SOURCE CLEAN CATCH
[2019-05-31 13:03] LABS: CALCIUM 9.5 mg/dL (8.8-10.2)
[2019-05-31 13:09] LABS: BILIRUBIN URINE NEGATIVE (NEGATIVE); BLOOD URINE LARGE (NEGATIVE); COLOR YELLOW; GLUCOSE URINE 200 mg/dL (NEGATIVE); KETONE URINE 40 mg/dL (NEGATIVE); LEUKOCYTES URINE NEGATIVE (NEGATIVE); NITRITE URINE NEGATIVE (NEGATIVE); PH URINE 6.5; PROTEIN URINE 200 mg/dL (NEGATIVE); SP GRAVITY URINE 1.018; TURBIDITY URINE CLEAR (CLEAR); UR EPITHELIAL CELLS <10 /HPF (<10); URINE BACTERIA NEGATIVE /HPF; URINE RBC TNTC /HPF (<10); URINE WBC <10 /HPF (<10); UROBILINOGEN URINE 2 mg/dL (NORMAL)
[2019-05-31 13:27] LABS: AGAP 18; ALB/GLOB RATIO 1.3; ALBUMIN 4.1 g/dL (3.5-5.0); ALKALINE PHOSPHATASE 180 U/L (32-122); BUN 6 mg/dL (8-22); CHLORIDE 101 mmol/L (98-107); COSMO 277; CREATININE 0.6 mg/dL (0.7-1.2); ESTIMATED GFR > 60; GLUCOSE 194 mg/dL (70-104); GOT 26 U/L (10-34); GPT 14 U/L (10-44); POTASSIUM 3.3 mmol/L (3.5-5.1); SODIUM 137 mmol/L (136-145); TCO2 18 mmol/L (25-35); TOTAL BILIRUBIN 2.84 mg/dL (0.20-1.00); TOTAL PROTEIN 7.3 g/dL (6.3-8.3)
[2019-05-31 13:49] LABS: CK PROFILE 298 U/L (24-204)
[2019-05-31] MEDS ORDERED: ROCEPHIN 2 GM in NS 50 ML IV ONE (13:57)
[2019-05-31] MEDS ORDERED: NS 1,000 ML IV ONE ×2 (14:00→23:32)
[2019-05-31 14:09] LABS: CK INDEX 2.2 (0.0-2.5); CK-MB 6.59 ng/mL (0.0-5.0)
--- NOTE | 2019-05-31 15:31 | HISTORY AND PHYSICAL ---
PRIMARY CARE PHYSICIAN: Dr. Jay Jay Shah. CHIEF COMPLAINT: Increased confusion over the past several days that has progressively worsened. HISTORY OF PRESENTING ILLNESS: This is a 64-year-old, male who presents to [facility] with his , stating that he has had increased confusion over the past several days that had progressively worsened. He has a known history of cirrhosis of the liver and has been taking his lactulose and Xifaxan. The reports that he had become more lethargic, restless, forgetting where he was and what month it was. Denied any fever, chills, abdominal pain, constipation, diarrhea, or any chest pain. Workup showed an ammonia level to be normal at 34. His potassium was 3.3. His creatine kinase was 298 with a CK-MB of 6.59 and a troponin T high sensitivity of 134. He denied any chest pain but his EKG showed what appears to be a new onset of atrial fibrillation with premature ventricular or aberrant conducted complexes at 83. I reviewed the previous EKGs that we have on file here in our system and he has not had a diagnosis of atrial fibrillation in the past. His chest x-ray showed no pneumonia. He states that he has not had any palpitations either. His plasma lactate was 4.4. Urinalysis was negative. He will be admitted for further evaluation and treatment. 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 PAST SURGICAL HISTORY: TURBT, cervical spine fusion, right carpal tunnel release, and a tonsillectomy. FAMILY HISTORY: Positive for hypertension and diabetes in both his parents. SOCIAL HISTORY: Currently lives with his . Chews tobacco as well as smokes cigarettes. He is a recovering alcoholic but has not been drinking going on 6 years now. No illicit drug use. ALLERGIES: He has no known drug allergies. HOME MEDICATIONS: He takes calcium 1200 mg p.o. b.i.d., Tresiba 15 units subcutaneous daily, lactulose 30 mL p.o. t.i.d., metformin 1000 mg p.o. daily, oxycodone 10 mg p.o. p.r.n., Xifaxan 550 mg p.o. daily, tamsulosin 0.4 mg p.o. daily, tizanidine 4 mg p.o. at bedtime. LABORATORY DATA: Showed a white blood cell count of 8.54, hemoglobin 12.7, hematocrit 39.3, platelets 158,000. PT of 16.8, INR of 1.34. Sodium 137, potassium 3.3, chloride 101, CO2 of 18, BUN of 6, creatinine 0.6, glucose 194. AST of 26, ALT 14, alkaline phosphatase 180, total bilirubin 2.84, ammonia of 34. Creatine kinase of 298, CK-MB of 6.59, troponin T high sensitivity of 134. Plasma lactate of 4.4. Urinalysis showed negative nitrites, negative leukocytes, too numerous to count red blood cells, negative bacteria. EKG showed atrial fibrillation with premature ventricular or aberrantly conducted complexes at 83. Chest x-ray showed no pneumonia. REVIEW OF SYSTEMS: He denied any fever, chills, blurred vision, dizziness. He has had increased lethargy and restlessness. Denied any chest pain, coughing, shortness of breath. Denied any abdominal pain, constipation, diarrhea, burning or hurting with urination. PHYSICAL EXAMINATION: VITAL SIGNS: He had a temperature of 98.4 degrees, pulse 96, respirations 20, blood pressure 150/85, saturating 95% on room air. GENERAL: This is a 64-year-old, male who is lying in the bed and answers questions appropriately at this time. HEENT: Normocephalic, atraumatic. Normal ENT inspection. Oropharynx and nares are clear. Eyes: Pupils are equal, round, and reactive to light and accommodation. Extraocular movements are intact. NECK: Normal inspection. Normal range of motion. LUNGS: Clear to auscultation bilaterally with equal lung expansion and chest wall movement. HEART: With irregular rate and rhythm. No murmurs, rubs, or gallops. ABDOMEN: Soft, nontender, nondistended. Bowel sounds are present x4 quadrants. MUSCULOSKELETAL: He had 4/5 strength x4 extremities. NEUROLOGICAL: Cranial nerves 2-12 appear grossly intact. ASSESSMENT: 1. Altered mental status. 2. Known cirrhosis of the liver. 3. Diabetes type 2. PLAN: He will be admitted to the medical unit, placed on telemetry, healthy heart diet. We will do serial cardiac enzymes. Check an echocardiogram in the a.m. Continue home medications as previously identified. Give Zofran 4 mg IV q.4 hours p.r.n. Apply SCDs for DVT prophylaxis and we will consult cardiology. We will recheck a CMP in the a.m. and recheck an ammonia level. Further orders after seen by attending. Dictated by BONILLA Martínez for Scot Watters MD cc: BONILLA Martínez MD Thomas E. Lockard, DO MTDD
[2019-05-31] MEDS ORDERED: ZOFRAN IV PRN (16:55)
[2019-05-31] MEDS ORDERED: LACTULOSE PO PRN (17:06)
--- NOTE | 2019-05-31 17:42 | HISTORY AND PHYSICAL ---
ADDENDUM The patient seen and examined by me face to face. All the laboratory, vital signs and images were reviewed. The patient presented to the emergency department with his due to confusion for a few days. As per the , he has been 2 or 3 days confused and a little bit lethargic. Today, he seems to be better per the . My physical exam is unremarkable and he is not confused. Laboratory showed an increase in lactate level, but this patient has been taking metformin even though he has liver cirrhosis. I will stop it. His urine analysis showed some blood, but the BUN, creatinine is normal. His ammonia level is normal. Apparently, his last bowel movement was today, in the morning, as per the patient multiple times; per the , probably once. There is no atrial fibrillation, rate He is not feeling any shortness of breath or chest pain, but since he has liver cirrhosis, likely this patient cannot be aggressively treated, coagulopathic. I will keep this patient in the hospital for 1 or 2 days. Cardiology Department has been consulted due to the possibility of CAD. We will monitor this patient closely. I agree with the rest of the nurse practitioner's assessment and plan. I will stop the metformin and go from there. cc: Scot Watters MD MTDD
[2019-05-31 19:12] LABS: CK INDEX 2.2 (0.0-2.5); CK-MB 6.48 ng/mL (0.0-5.0)
[2019-05-31] MEDS: LACTULOSE PO SCH (22:08)
[2019-05-31] MEDS: OSCAL 500 PO SCH (22:09)
[2019-05-31] MEDS: ZANAFLEX PO SCH (22:10)
--- NOTE | 2019-06-01 00:16 | EKG Report ---
Test Performed on : 05/31/2019 11:41:39 PM Test Reason : Hypotension Blood Pressure : / mmHG Vent. Rate : 067 BPM Atrial Rate : 067 BPM P-R Int : 108 ms QRS Dur : 072 ms QT Int : 560 ms P-R-T Axes : 086 069 068 degrees QTc Int : 591 ms Critical Test Result: Long QTc Sinus rhythm. with short [facility] Nonspecific ST and T wave abnormality Prolonged QT Abnormal ECG When compared with ECG of 31-MAY-2019 11:26, (Unconfirmed) Sinus rhythm. has replaced Atrial fibrillation. Nonspecific T wave abnormality no longer evident in Inferior leads QT has lengthened Confirmed by Leonardo Forman MD ([id number]) on 06/01/2019 9:03:27 PM
[2019-06-01 00:22] LABS: ESTIMATED GFR > 60
[2019-06-01 00:37] LABS: AGAP 17; ALB/GLOB RATIO 1.2; ALBUMIN 3.2 g/dL (3.5-5.0); ALKALINE PHOSPHATASE 143 U/L (32-122); BUN 6 mg/dL (8-22); CALCIUM 8.4 mg/dL (8.8-10.2); CHLORIDE 104 mmol/L (98-107); CK PROFILE 319 U/L (24-204); COSMO 275; CREATININE 0.5 mg/dL (0.7-1.2); GLUCOSE 167 mg/dL (70-104); GOT 32 U/L (10-34); GPT 13 U/L (10-44); POTASSIUM 3.2 mmol/L (3.5-5.1); SODIUM 137 mmol/L (136-145); TCO2 16 mmol/L (25-35); TOTAL PROTEIN 5.9 g/dL (6.3-8.3)
[2019-06-01 00:49] LABS: MAGNESIUM 1.1 mg/dL (1.5-2.7)
[2019-06-01] MEDS ORDERED: MAGNESIUM SULFATE 2 GM/S.W.I. 2 GM/50 ML IVPB IV ONE (00:51)
[2019-06-01] MEDS ORDERED: POTASSIUM CHLORIDE 20% LIQUID PO ONE (00:54)
[2019-06-01 01:00] LABS: CK INDEX 2.2 (0.0-2.5); CK-MB 6.92 ng/mL (0.0-5.0)
[2019-06-01 01:22] LABS: CK-MB 5.98 ng/mL (0.0-5.0)
--- NOTE | 2019-06-01 01:33 | EKG Report ---
Test Performed on : 06/01/2019 01:13:29 AM Test Reason : Elevated Troponin Blood Pressure : / mmHG Vent. Rate : 054 BPM Atrial Rate : 054 BPM P-R Int : 128 ms QRS Dur : 084 ms QT Int : 620 ms P-R-T Axes : 052 059 066 degrees QTc Int : 587 ms Critical Test Result: Long QTc Sinus bradycardia. Prolonged QT Abnormal ECG When compared with ECG of 31-MAY-2019 23:41, (Unconfirmed) No significant change was found Confirmed by Leonardo Forman MD ([id number]) on 06/01/2019 9:03:45 PM
[2019-06-01] MEDS ORDERED: NS 500 ML IV ONE (03:18)
[2019-06-01 07:41] LABS: CK INDEX 2.2 (0.0-2.5); CK-MB 6.69 ng/mL (0.0-5.0)
--- NOTE | 2019-06-01 07:55 | EKG Report ---
Test Performed on : 06/01/2019 07:40:54 AM Test Reason : A Fib ? Blood Pressure : / mmHG Vent. Rate : 068 BPM Atrial Rate : 068 BPM P-R Int : 134 ms QRS Dur : 082 ms QT Int : 508 ms P-R-T Axes : 057 033 054 degrees QTc Int : 540 ms Sinus rhythm. with premature atrial complexes. Nonspecific T wave abnormality Prolonged QT Abnormal ECG When compared with ECG of 01-JUN-2019 01:13, (Unconfirmed) premature atrial complexes. are now present Confirmed by Leonardo Forman MD ([id number]) on 06/01/2019 9:09:15 PM
[2019-06-01] MEDS: XIFAXAN PO SCH (08:21)
[2019-06-01] MEDS: FLOMAX PO SCH (08:21)
[2019-06-01] MEDS: LACTULOSE PO SCH ×2 (08:21→09:16)
[2019-06-01] MEDS ORDERED: GLUCOPHAGE XR PO SCH (09:00)
[2019-06-01] MEDS ORDERED: TRESIBA U SUBQ SCH (09:00)
[2019-06-01] MEDS: OSCAL 500 PO SCH ×2 (09:17→20:41)
--- NOTE | 2019-06-01 09:45 | PROGRESS NOTE ---
DATE: 06/01/2019 SUBJECTIVE: This patient is lying comfortably in bed. He had an episode of low blood pressure during the night that responded to IV fluids. Probably he was dehydrated. As per the patient, he is having multiple bowel movements. Since this patient has liver cirrhosis, he is taking lactulose twice a day, which I will decrease it to once a day and see how he does. I do not want more than 3 or 4 bowel movements per day, and as per the patient, he had like 4 bowel movements just during the night. I do not have any source of infection, and actually, he does not have ascites or abdominal pain. He had a low-grade temperature at 100.1 degrees. I will get a urinalysis. Blood cultures so far are negative, and again, no abdominal pain at all. OBJECTIVE: Vital Signs: Temperature 100.1 degrees, pulse 83, respiratory rate 24, blood pressure 108/61, oxygen saturation 96% on room air. HEENT: Head normocephalic, no trauma. PERRLA. Neck: Supple. No JVD. No masses. Central trachea. Chest: Clear to auscultation. No wheezing. No rales. Cardiovascular: RRR. Abdomen: Soft, nontender, nondistended. No hepatosplenomegaly. No signs of ascites. Extremities: No edema no, clubbing, no cyanosis. Neurological: Patient is awake, alert. He is oriented x3. No complaints at all. LABORATORY: Pending CBC and CMP. Magnesium level is 1.6, glucose 149. CK-MB 6.6 and troponin 150. ASSESSMENT AND PLAN: 1. Altered mental status/confusion. He has not been confused for me since admission, but as per the , he was better yesterday. I do not have any source of infection. He does not have ascites or pain. I will get a urine culture. A chest x-ray looks fine. He is not coughing, and the blood culture is negative. This is likely metabolic. He has some electrolyte imbalance including severe hypomagnesemia, which has been replaced. He has an episode of hypotension and bradycardia during the night with elevated troponins. Cardiology Department has been consulted for that. 2. Elevated troponin concerning for acute coronary syndrome. Unfortunately, this patient has liver cirrhosis and we cannot be aggressive with this patient. I will wait for the echocardiogram and Cardiology evaluation to decide what is going to be the next step. Right now, his vital signs are stable. His temperature is slightly elevated. 3. Type 2 diabetes. Continue with same management for now. 4. 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 It looks like the last time he drank alcohol was last month, but before that he was alcohol free for more than 5 years, and apparently, he has not been drinking since then. 5. History of hypertension. We are holding any kind of blood pressure medication and narcotics since this patient has normal blood pressure, but an episode of hypotension during the night. 6. History of chronic pain, aware. 7. History of bladder cancer. We will monitor for now. 8. Depending on the echocardiogram result and Cardiology evaluation, probably this patient can go to the floor. He seems to be stable, pending lab work. cc: Scot Watters MD
[2019-06-01 09:51] LABS: BASO# 0.12 X1000 (0.0-0.2); BASO% 1.4 % (0.0-0.8); EOS# 0.11 X1000 (0.0-0.7); EOS% 1.3 % (0.0-10.0); HEMATOCRIT 36.3 % (42.0-52.0); HEMOGLOBIN 11.6 g/dL (14.0-18.0); IMM GRAN# 0.02 X1000 (0.0-0.04); IMM GRAN% 0.2 % (0.0-0.5); LYMPH# 1.99 X1000 (1.2-3.4); LYMPH% 23.9 % (20.5-51.1); MCH 22.7 PG (27-31); MCV 70.9 FL (81-99); MONO# 1.18 X1000 (0.11-0.59); MONO% 14.1 % (1.7-9.3); MPV 10.7 FL (7.4-10.4); NEUT# 4.92 X1000 (1.4-6.5); NEUT% 59.1 % (42.2-75.2); PLT 173 X1000 (130-400); RBC 5.12 XMIL (4.7-6.1); RDW 18.5 % (11.5-14.5); WBC 8.34 X1000 (4.8-10.8)
[2019-06-01] MEDS: OXY IR PO PRN ×2 (10:01→15:46)
[2019-06-01 10:53] LABS: AGAP 13; ALB/GLOB RATIO 1.1; ALBUMIN 3.2 g/dL (3.5-5.0); ALKALINE PHOSPHATASE 149 U/L (32-122); BUN 10 mg/dL (8-22); CALCIUM 8.5 mg/dL (8.8-10.2); CHLORIDE 107 mmol/L (98-107); COSMO 278; CREATININE 0.6 mg/dL (0.7-1.2); ESTIMATED GFR > 60; GLUCOSE 163 mg/dL (70-104); GOT 29 U/L (10-34); GPT 14 U/L (10-44); POTASSIUM 3.3 mmol/L (3.5-5.1); SODIUM 138 mmol/L (136-145); TCO2 18 mmol/L (25-35); TOTAL BILIRUBIN 2.25 mg/dL (0.20-1.00); TOTAL PROTEIN 6.2 g/dL (6.3-8.3)
[2019-06-01 11:13] LABS: HEMOGLOBIN A1C 9.6 % (4.8-6.0)
[2019-06-01 11:46] LABS: CK-MB 5.69 ng/mL (0.0-5.0)
[2019-06-01] MEDS ORDERED: KLOR-CON PO ONE (11:51)
[2019-06-01] MEDS ORDERED: MAGNESIUM SULFATE 1 GM/D5W 1 GM/100 ML IVPB IV ONE (12:00)
--- NOTE | 2019-06-01 14:45 | CONSULTATION ---
DATE OF CONSULTATION: 06/01/2019 IMPRESSION: 1. Irregular cardiac rhythm felt to possibly be atrial fibrillation. A review of the ECG strips shows sinus rhythm with frequent supraventricular ectopy and no episodes of atrial fibrillation. 2. Nonspecific mild elevation in troponin with normal CPK-MB index. Suspect likely noncardiac given absence of chest pain. Benign ECG and normal CPK-MB index. 3. Admitted with episodes of confusion and unusual behavior. This has been recurrent phenomenon for 2 years. 4. Cirrhosis. 5. Type 2 diabetes mellitus. 6. Hypertension. RECOMMENDATIONS: 1. Echocardiography. 2. Continue to monitor on telemetry. HISTORY: This 64-year-old white male with past history of cirrhosis, type 2 days mellitus, hypertension and previous heavy alcohol use in the past, discontinued approximately 6 years ago, was admitted through the emergency room after an episode of confusion. He is described as being confused and wanting to defecate on the couch in the trailer were he was he was staying. He was somewhat agitated. He was brought to the emergency room. ECG was thought to represent atrial fibrillation. However on review this it shows sinus rhythm with frequent supraventricular ectopy. Cardiology is consulted regarding suspected atrial fibrillation. He was admitted to telemetry and overnight experienced some mild drop in blood pressure which has since improved with intravenous volume administration. He has reportedly had occasional instance of confusion such as this over the past couple years and previous workup has indicated that his ammonia levels might be elevated at such times. He has had some low-grade fever subjectively and he has occasional chills. He took some NyQuil yesterday p.m. and is not clear if this had anything to do with his confusion/agitation. He presently is clear thinking and denies any chest symptoms. There is no history of palpitations, chest pain, shortness of breath. PAST MEDICAL HISTORY: 1. Alcoholic cirrhosis. 2. Type 2 diabetes mellitus. 3. Hypertension. 4. Bladder cancer. PAST SURGICAL HISTORY: 1. Transurethral resection of bladder tumor. 2. Cervical fusion surgery. 3. Right carpal tunnel release. 4. Tonsillectomy. 5. Unspecified lumbar surgery. 6. Cataract extraction. 7. Tonsillectomy. MEDICATIONS PRIOR TO ADMISSION: As listed. SOCIAL HISTORY: He is and retired. 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 He has history of previous heavy alcohol use drinking a 5th of vodka daily. This was discontinued 2013 after he went through rehab. He has history of previous smoking in the past at a rate of perhaps 1 pack cigarettes per week. FAMILY HISTORY: Negative for premature coronary disease. REVIEW OF SYSTEMS: Pulmonary: Negative. Gastrointestinal: Noncontributory beyond history of present illness. Constitutional: Noncontributory beyond history of present illness. Remainder of review of systems negative/noncontributory beyond history of present illness with 14 total systems reviewed. PHYSICAL EXAMINATION: General: This is a pleasant older white male in no distress on room air. He appears older than stated age. Vital signs: Blood pressure 108/61, heart rate 83, oxygen saturation 96% on room air. HEENT: Extraocular movements intact. Mucous membranes moist. Neck: Supple. No jugular venous distention. There are no carotid bruits. Chest: Clear to auscultation bilaterally. Cardiac Exam: Reveals a regular rate and rhythm without appreciable murmur or gallop. Abdomen: Soft. Bowel sounds are normal. Extremities: Without edema. There is no peripheral stigmata of endocarditis. Neurologic: Reveals him to be awake and oriented. Speech is fluent. Moves all 4 extremities equally well. Skin: Warm, dry. Psychiatric: Reveals mood to be appropriate. 12 lead EKG demonstrates sinus rhythm with sinus arrhythmia and occasional premature supraventricular complexes. LABORATORY DATA: Includes sodium 137, potassium 3.2 chloride 104, carbon dioxide 16, BUN 6, creatinine 0.5, glucose 167, magnesium 1.1. Initial CPK 219 with followup CPK 301 and 311 with normal CPK-MB indices. Initial troponin T to 24 followup troponin T150. White blood cell count 8.34, hematocrit 36.3, platelet count 173,000 chest x-ray reports no infiltrate. cc: Inder Ray MD
[2019-06-01] MEDS: ZANAFLEX PO SCH (20:41)
[2019-06-01] MEDS: HUMULIN R SUBQ SCH (22:27)
[2019-06-02] MEDS ORDERED: NS 500 ML IV ONE ×2 (00:03→01:25)
[2019-06-02 02:16] LABS: AGAP 9; BUN 11 mg/dL (8-22); CALCIUM 7.7 mg/dL (8.8-10.2); CHLORIDE 108 mmol/L (98-107); COSMO 276; CREATININE 0.6 mg/dL (0.7-1.2); ESTIMATED GFR > 60; GLUCOSE 216 mg/dL (70-104); MAGNESIUM 1.6 mg/dL (1.5-2.7); POTASSIUM 3.7 mmol/L (3.5-5.1); SODIUM 135 mmol/L (136-145); TCO2 18 mmol/L (25-35)
[2019-06-02 06:03] LABS: BASO# 0.09 X1000 (0.0-0.2); BASO% 1.2 % (0.0-0.8); EOS# 0.29 X1000 (0.0-0.7); EOS% 3.8 % (0.0-10.0); HEMATOCRIT 31.6 % (42.0-52.0); HEMOGLOBIN 9.9 g/dL (14.0-18.0); IMM GRAN# 0.02 X1000 (0.0-0.04); IMM GRAN% 0.3 % (0.0-0.5); LYMPH# 2.08 X1000 (1.2-3.4); MCH 22.7 PG (27-31); MCHC 31.3 g/dL (33-37); MCV 72.3 FL (81-99); MONO# 1.23 X1000 (0.11-0.59); MPV 10.2 FL (7.4-10.4); NEUT% 51.7 % (42.2-75.2); PLT 136 X1000 (130-400); RBC 4.37 XMIL (4.7-6.1); RDW 18.3 % (11.5-14.5); WBC 7.71 X1000 (4.8-10.8)
[2019-06-02 06:26] LABS: MAGNESIUM 1.6 mg/dL (1.5-2.7); PHOSPHORUS 3.6 mg/dL (2.7-4.5)
[2019-06-02 06:29] LABS: AGAP 9; ALB/GLOB RATIO 1.2; ALBUMIN 2.9 g/dL (3.5-5.0); ALKALINE PHOSPHATASE 121 U/L (32-122); BUN 13 mg/dL (8-22); CALCIUM 7.9 mg/dL (8.8-10.2); CHLORIDE 109 mmol/L (98-107); COSMO 279; CREATININE 0.6 mg/dL (0.7-1.2); ESTIMATED GFR > 60; GLUCOSE 193 mg/dL (70-104); GOT 21 U/L (10-34); GPT 13 U/L (10-44); SODIUM 137 mmol/L (136-145); TCO2 19 mmol/L (25-35); TOTAL BILIRUBIN 1.42 mg/dL (0.20-1.00); TOTAL PROTEIN 5.3 g/dL (6.3-8.3)
[2019-06-02] MEDS: HUMULIN R SUBQ SCH ×2 (06:34→11:33)
--- NOTE | 2019-06-02 07:16 | EKG Report ---
Test Performed on : 06/02/2019 06:45:53 AM Test Reason : dyspnea Blood Pressure : / mmHG Vent. Rate : 073 BPM Atrial Rate : 073 BPM P-R Int : 152 ms QRS Dur : 082 ms QT Int : 468 ms P-R-T Axes : 068 068 060 degrees QTc Int : 515 ms Normal sinus rhythm. Prolonged QT Abnormal ECG When compared with ECG of 01-JUN-2019 07:40, premature atrial complexes. are no longer present Confirmed by Leonardo Forman MD ([id number]) on 06/03/2019 9:12:42 PM
[2019-06-02 07:41] LABS: EOS 4 % (1-10); LYMPHS 34 % (21-51); SEGS 52 % (42-75)
[2019-06-02] MEDS: LACTULOSE PO SCH (08:05)
[2019-06-02] MEDS: XIFAXAN PO SCH (08:05)
[2019-06-02] MEDS: FLOMAX PO SCH (08:05)
[2019-06-02] MEDS: OSCAL 500 PO SCH (08:05)
[2019-06-02] MEDS: OXY IR PO PRN (08:05)
[2019-06-02] MEDS ORDERED: LANTUS INSULIN SUBQ SCH (09:00)
[2019-06-02 11:17] VITALS: BP 144/78
--- NOTE | 2019-06-02 15:58 | ECHO REPORT ---
ORDER DATE: 06/01/2019 INDICATION: New onset atrial fibrillation. FINDINGS: 1. Right atrium appears normal in size. 2. Mild tricuspid regurgitation. RV systolic pressure of 42. 3. Normal RV size and systolic function. 4. No significant pulmonic insufficiency. 5. Moderate left atrial enlargement with a volume index of 38. 6. No mitral valve prolapse. Mild mitral regurgitation. No evidence of mitral stenosis. 7. Normal LV size, end-diastolic dimension of 5.1 cm. Normal wall thicknesses with a posterior and interventricular septal wall thickness of 1.0 and 0.9 cm respectively. Normal LV systolic function. Estimated EF of 55% with normal wall motion. Grade 2 diastolic dysfunction. 8. Aortic valve opens well. It is trileaflet. Trace of insufficiency. 9. The aortic valve appears sclerotic but there does not appear to be any significant degree of stenosis. Trace insufficiency. The valve is trileaflet. 10. Aorta appears normal in the visualized segments. 11. No pericardial effusion seen. cc: MD Jeannine Hubbard CRNP
--- NOTE | 2019-06-03 04:46 | DISCHARGE SUMMARY ---
ADMISSION DATE: 05/31/2019 DISCHARGE DATE: 06/02/2019 DISCHARGE DIAGNOSES: 1. Altered mental status/confusion, resolved. 2. Elevated troponin. 3. Type 2 diabetes, uncontrolled. 4. Liver cirrhosis due to alcohol abuse. 5. History of hypertension. 6. History of chronic pain. 7. History of bladder cancer. PROCEDURE PERFORMED: 1. Chest x-ray dated 05/31/2019. Impression: No pneumonia. 2. Echocardiogram dated 06/01/2019. Impression: Normal right ventricular size and systolic function, ejection fraction of 55% with normal wall motion. Grade 2 diastolic dysfunction. CONSULTATION: Cardiology Department. HOSPITAL COURSE: A 64-year-old male presented to [facility] with his . He was admitted on 05/31/2019 due to increased confusion over the past several days, and apparently has been getting worse. He has a history of liver cirrhosis, and he has been taking his lactulose and rifaximin. Apparently, he has been come more lethargic, restless, and forgetful. No fever, no chills. No abdominal pain. No constipation. No diarrhea. No chest pain. Ammonia level was normal. Potassium is slightly low. CK was a little bit elevated, and the troponin was 134. He denied any chest pain. EKG was normal sinus with some premature ventricular complexes. Chest x-ray did not show pneumonia. He was admitted. On physical exam, we noticed that this patient was dehydrated and actually his blood pressure was low at some point. After bolusing him with some normal saline, his blood pressure got better and he was feeling much better. We also noticed that this patient was having more than 3 bowel movements. Actually, at some point during the first day of his hospitalization, he got at least 4 runny watery bowel movements during the night. I talked to the patient and the , and I told them that they need to titrate the lactulose so he can have at least 3 bowel movements. We do not need more than that. Also, he is taking rifaximin. They seem to understand that probably he was dehydrated, and I do believe that that was the problem. The patient will be discharged today. Cardiology Department evaluated this patient. We did an echocardiogram that did not show any major issues. He seems to be awake and alert. He is oriented. No issues during this hospitalization with his mentation. PHYSICAL EXAMINATION: Vital Signs: Temperature 98 degrees, pulse 78, respiratory rate 20, blood pressure 144/78, and oxygen saturation 98 percent on room air. HEENT: Head normocephalic. No trauma. PERRLA. Neck: Supple. No JVD. No masses. Central trachea. Chest: Clear to auscultation. No wheezing. No rales. Abdomen: Soft. It is nontender. Extremities: No edema. No clubbing. No cyanosis. Neurological: The patient is awake and alert. He is oriented. No complaints. LABORATORY: WBC 7.7, hemoglobin 9.9, hematocrit 31.6, and platelets 136,000. Sodium 135, potassium 3.7, chloride 108, bicarbonate 18, BUN 11, creatinine 0.6, glucose 216, calcium 7.7, magnesium 1.6, total bilirubin 1.4, AST 21, ALT 13, alkaline phosphatase 121, and albumin 2.9. DISCHARGE MEDICATIONS: Basically, he will continue with the medications that he has been at home except that I will stop the muscle relaxant which is causing hypotension to this patient. HOME MEDICATIONS: 1. Calcium carbonate 1200 mg p.o. b.i.d. 2. Tresiba flex touch 15 units subcutaneous daily. 3. Lactulose 30 mL p.o. t.i.d., but they need to decrease the dose depending on the amount of the bowel movement. 4. Oxycodone 10 mg p.o. as needed. 5. Rifaximin 550 mg p.o. daily. 6. Flomax 0.4 mg p.o. daily. TIME SPENT: Time discharging this patient 20 minutes. cc: Scot Watters MD
== END 2019-06-02 14:39 | disposition home or self-care (01) | DRG 641 ==
LOC: ED 11:03 → EDIPHOLD 11:04 → 4N 19:48 → ICU 06-01 01:59 → 4N 06-02 09:48
PROVIDERS: ATTEND Internal Medicine